=== PATIENT | male | born 1980 | race Caucasian/White ===

== ENCOUNTER → 2017-06-10 | Outpatient (CLI) | payer BC | LOC: PT 07:52 → CARDREHAB 08:02 | DX: R55 Syncope and collapse (principal); F17.200 Nicotine dependence, unspecified, uncomplicated; E78.00 Pure hypercholesterolemia, unspecified ==

== ENCOUNTER → 2024-07-23 | Day surgery (SDC) | payer BC | LOC: MSO 08:43 | DX: Z12.11 Encounter for screening for malignant neoplasm of colon (principal); D12.3 Benign neoplasm of transverse colon | CPT/HCPCS: 00812; J2704; J7120 ==